=== PATIENT | female | born 1940 | race Caucasian/White ===

== ENCOUNTER → 2019-11-25 | Day surgery (SDC) | payer MEDICARE, BC ==
[2019-11-23 16:31] LABS: BASOPHILS # (AUTO) 0.1 (0.0-0.1); BASOPHILS % 0.6 % (0.0-1.0); EOSINOPHILS # (AUTO) 0.3 (0.0-0.4); EOSINOPHILS % 2.6 % (0.0-6.0); HEMATOCRIT 39.7 % (34.2-44.1); LYMPHOCYTES # (AUTO) 2.7 (1.0-3.2); LYMPHOCYTES % 21.4 % (18.0-39.1); MEAN CORPUSCULAR HEMOGLOBIN 30.2 pg (28-32); MEAN CORPUSCULAR HGB CONC 32.7 g/dL (31-35); MEAN CORPUSCULAR VOLUME 92.1 fL (81-99); MONOCYTES # (AUTO) 1.1 (0.2-0.8); MONOCYTES % 8.8 % (4.4-11.3); NEUTROPHILS # (AUTO) 8.3 (2.1-6.9); NEUTROPHILS % 66.3 % (38.7-80.0); PLATELET COUNT 269 x10e3/uL (140-360); RED BLOOD COUNT 4.31 x10e6/uL (3.6-5.1); RED CELL DISTRIBUTION WIDTH 13.2 % (11.7-14.4)
--- NOTE | 2019-11-23 16:49 | Diagnostic Imaging Report ---
EXAMINATION: CHEST 2 VIEWS INDICATION: Pre-operative COMPARISON: None FINDINGS: LINES/TUBES:None LUNGS:The lungs are well-inflated. No focal consolidation or pulmonary edema. PLEURA:No pleural effusion or pneumothorax. MEDIASTINUM:The cardiomediastinal silhouette appears normal in size and shape. BONES/SOFT TISSUES:No acute osseous injury. Metallic anchors at the right shoulder related to prior rotator cuff repair. ABDOMEN: Moderate hiatal hernia. No free air under the diaphragm. IMPRESSION: No focal pneumonia or pulmonary edema. Moderate hiatal hernia. Signed by: Srini Chaves MD on 11/23/2019 4:47 PM
[~2019-11-25] MED LIST: ACETAMINOPHEN 1000 MG/100 ML IV ONE; ALENDRONATE SOD70 MG PO; AMLODIPINE BESY10 MG PO; BUPIVACAINE HCL 0.5% INJ 30 ML VIAL INJ ONE; CEFAZOLIN SOD 1 GM/NS 50ML 100 ML IV ONE; CENTRUM ADULTS1 EACH PO; DEXAMETHASONE SOD PHOS INJ 4 MG/ML VIAL ONE; DICLOFENAC-MIS1 EAC2 PO; EPINEPHRINE HCL 1:1000 1ML 1 MG/ML AMP ONE; FENTANYL CITRATE/PF 100MCG/2 ML INJ ONE; FOSAMAX; GLYCOPYRROLATE INJ 0.2 MG/ML VIAL ONE; HYDROMORPHONE 2MG/ML 2 MG/ML ML ONE; LIDOCAINE HCL 2% LOCAL INJ 5 ML SDV VIAL INJ ONE; LOSARTAN-HCTZ1 EAC1 PO; METOCLOPRAMIDE HCL 10 MG/2ML VIAL ONE; MIDAZOLAM HCL 2 MG/2 ML VIAL ONE; NEOSTIGMINE 1 MG/ML 10ML VIAL ONE; ONDANSETRON HCL INJ 2MG/ML 2ML 2 MG/ML VIAL ONE; PROCARDIA; PROPOFOL IV EMULSION 10 MG/ML 20 ML VIAL ONE; ROCURONIUM BROMIDE 10 MG/ML 5ML VIAL ONE; SEVOFLURANE INHAL SOLN 250 ML PEN BTL ONE; [UNRECOGNIZED DRUG - OTHER]
--- OUTSIDE RECORDS SUMMARY | 2019-11-25 07:06 | XMS REPORT ---
Author [facility] Address Unknown Phone Unavailable Care Team Providers Care Fabric Machine Operator Name Role Phone YANCY CORDOBA Unavailable Unavailable Payers Payer Name Policy Type Policy Number Effective Date Expiration Date Problems This patient has no known problems. Allergies, Adverse Reactions, Alerts Allergy Name Allergy Type Status Severity Reaction(s) Onset Date Inactive Date Treating Clinician Comments No Known Contrast Allergies DA Active U 2008-12-02 00:00:00 No Known Drug Allergies DA Active U 2008-12-02 00:00:00 No Known Food Allergies DA Active U 2008-12-02 00:00:00 No Known Other Allergies DA Active U 2008-12-02 00:00:00 No Known Drug Intolerances DA Active U 2008-12-01 00:00:00 Medications This patient has no known medications. Results Test Description Test Time Test Comments Text Results Atomic Results Result Comments CHEST 2 VIEWS 2019-11-23 16:45:00 [facility] [address] [place] [address] Patient Name: PEARL HUGO MR #: [id number] : 1940 Age/Sex: 79/F Req #: [id number] Adm Physician: Ordered by: YANCY CORDOBA MD Report #: [id number] Location: OR Room/Bed: Procedure: [id number] DX/CHEST 2 VIEWS Exam Date: 11/23/19 Exam Time: 162 REPORT STATUS: Signed EXAMINATION: CHEST 2 VIEWS INDICATION: Pre-operative COMPARISON: None FINDINGS: LINES/TUBES:None LUNGS:The lungs are well-inflated. No focal consolidation or pulmonary edema. PLEURA:No pleural effusion or pneumothorax. MEDIASTINUM:The cardiomediastinal silhouette appears normal in size and shape. BONES/SOFT TISSUES:No acute osseous injury. Metallic anchors at the right shoulder related to prior rotator cuff repair. ABDOMEN: Moderate hiatal hernia. No free air under the diaphragm. IMPRESSION: No focal pneumonia or pulmonary edema. Moderate hiatal hernia. Signed by: Brianne Garcias MD on 11/23/2019 4:47 PM Dictated By: BRIANNE GARCIAS MD 46 Transcribed By: LITA on 11/23/191646 COPY TO: YANCY CORDOBA MD MRI SHOULDER LEFT WO 2019-11-17 13:51:00 [place] [address] Patient Name: PEARL HUGO MR #: [id number] : 1940 Age/Sex: 79/F Req #: [id number] Adm Physician: Ordered by: YANCY CORDOBA MD Report #: [id number] Location: MRI Room/Bed: Procedure: [id number] MRI/MRI SHOULDER LEFT WO Exam Date: Exam Time: REPORT STATUS: Signed MRI of the left shoulder without contrast. History: Shoulder pain. Rotator cuff tear. Decreased range of motion. Comparison: None Technique: Coronal PD FS, sagital PD FS, and axial PD and PD FS. Findings: Rotator cuff: Rotator cuff tendinosis with full-thickness tear involving the anterior fibers of the supraspinatus and infraspinatus tendons at the insertion site. This is best seen on sagittal image 6 and coronal image 9 through 12. Minimal retraction of the torn fibers and mild supraspinatus and infraspinatus muscle atrophy. Additionally, there is subscapularis tendinosis. The teres minor tendon is intact. Osseous acromion complex: Type II acromion with mild lateral downsloping. Moderate degenerative arthrosis at the acromioclavicular joint with undersurface spurring and narrowing of the supraspinatus tendon outlet. Mild subacromial/subdeltoid bursitis. Glenohumeral joint: Degeneration and fraying of the labrum. The articular cartilage surfaces are intact. The humeral head is well-seated in the glenoid fossa. Biceps tendon: Intra-articular biceps tendinosis with fraying at the biceps anchor. Other findings: Negative for muscle denervation or osseous fracture. Impression: Rotator cuff tendinosis with full-thickness tear involving the anterior fibers of the supraspinatus and infraspinatus tendons at the insertion site. Moderate degenerative arthrosis at the acromioclavic ular joint with undersurface spurring and narrowing of the supraspinatus tendon outlet. Mild subacromial/subdeltoid bursitis. Signed by: Dr. Miri Russell M.D. on 11/17/2019 1:56 PM Dictated By: MIRI RUSSELL MD, MD [id number] Transcribed By: LITA on 11/17/19 1352 COPY TO: YANCY CORDOBA MD LIPID PROFILE (CORONARY RISK) 2018-12-16 13:38:00 TRIGLYCERIDES (test code=TRIG) 150 mg/dL 20-150 CHOLESTEROL (test code=CHOL) 164 mg/dL 0-200 CHOLESTEROL/HDL RATIO (test code=CHOLHDL) 2.0 RATIO 0-4.9 RISK ASSOCIATED WITH CHOL/HDL RATIOS: Risk Male Female1/2 AVERAGE 3.43 3.27AVERAGE 4.97 4.442X AVERAGE 9.55 7.053X AVERAGE 23.39 11.04 REFERENCE VALUE IS RELATED TO RISK LEVELS ASRECOMMENDED BY THE [facility]. HEART, LUNG, AND BLOOD INST. HDL CHOLESTEROL (test code=HDL) 62 mg/dL 40-60 LIPOPROTEIN LDL (test code=LDL) 86 mg/dL 100-129 Reference Interval: mg/dL mmol/L Optimal <100 <2.6Near/above optimal 100-129 2.6- 3.3Borderline High 130-159 3.4-4.1High 160-189 4.1-4.9Very High >=190 >=4.9=========This LDL result is a direct measurement.========= COMPREHENSIVE METABOLIC [id number] 08:54:00* Test Item Value Reference Range Comments SODIUM (test code=NA) 141 mmol/L 135-148 POTASSIUM (test code=K) 4.6 mmol/L 3.5-5.1 CHLORIDE (test code=CL) 104 mmol/L 101-109 CARBON DIOXIDE (test code=CO2) 28.9 mmol/L 21-32 ANION GAP (test code=GAP) 13 mmol/L 10-20 GLUCOSE (test code=GLU) 100 mg/dL 74-106 BLOOD UREA NITROGEN (test code=BUN) 30 mg/dL 3-21 CREATININE (test code=CREAT) 1.07 mg/dL 0.55-1.3 BUN/CREATININE RATIO (test code=BUN/CREA) 28.0 10-20 TOTAL PROTEIN (test code=PROT) 7.9 g/dL 6.5-8.4 ALBUMIN (test code=ALB) 3.8 g/dL 3.4-4.8 GLOBULIN (test code=GLOB) 4.1 G/DL 1-10 ALBUMIN/GLOBULIN RATIO (test code=A/G) 0.9 RATIO 0.75-1.50 CALCIUM (test code=CA) 9.2 mg/dL 8.4-10.2 BILIRUBIN TOTAL (test code=BILT) 0.50 mg/dL 0.0-1.0 SGOT/AST (test code=AST) 18 U/L 6-32 SGPT/ALT (test code=ALT) 28 U/L 12-78 Note: Change in REFERENCE RANGE due to new reagent method. ALKALINE PHOSPHATASE TOTAL (test code=ALKP) 101 U/L 38-126 BREAST CYST ASPIRATION [id number] 08:01:16- BREAST CYST ASPIRATION LEFTULTRASOUND GUIDED ASPIRATION LEFT BREAST: 10/28/2018CLINICAL: Left Cyst Aspiration. Comparison is made to exams dated 10/15/2018 ultrasound and 10/15/2018 mammogram - [facility] An aspiration was performed for the palpable 4 mm cyst located in the left breast at 9 o'clock, 10 cm from the nipple. The skin was prepped in the usual manner. Local anesthetic was administered to the access site. A 23 gauge needle was percutaneously placed into the abnormality under ultrasound guidance. Once the needle was documented to be in the correct location, clear yellow fluid was aspirated. The aspirated fluid was discarded. IMPRESSION: ASPIRATIONAspiration of the 4 mm cyst in the left breast was successful. Resume annual screening mammography in one year. Neelam Aguilera M.D. dm/:10/28/2018 08:01:16 Entry: - 10/28/2018 09:50:4 4Imaging Technologist: Yolanda Paris , [facility]-letter sent: B IRADS 1-2 NormalBREAST ULTRASOUND [id number] 10:45:39 - DIAG MAMM LEFT VINEET CAD DIGITALUNILATERAL LEFT DIGITAL DIAGNOSTIC MAMMOGRAM 3D/2D WITH CAD: 10/15/2018CLINICAL: Abnormal Mammogram. Digital breast tomosynthesis was performed in addition to routine CC and MLO views. Current mammographic images were evaluated by either a Currently M-Vu or a [email or web address] CAD (computer aided detection system). Comparison is made to exams dated 10/02/2018 mammogram, 09/11/2016 mammogram, and 07/29/2014 [facility] - [facility]. Recent exam with the following findings: A 4 mm asymmetry only seen in t he left breast MLO view superiorly, posterior depth. Spot compression tomosynth esis and possible ultrasound are recommended at this time.The tissue of the left breast is heterogeneously dense. This may lower the sensitivity of mammography. There is a 4 mm mass in the left breast at 9 o'clock, posterior depth, 10 cm f rom the nipple. No other significant masses or calcifications are seen in the b reast. INCOMPLETE ASSESSMENT: ADDITIONAL IMAGING EVALUATION RECOMMENDEDThe 4 mm mass in the left breast at 9 o'clock, posterior depth, 10 cm from the nipple, is indeterminate. An ultrasound is recommended and will be performed later today for further evaluation. - BREAST ULTRASOUND LEFTULTRASOUND OF LEFT BREAST AND LEFT AXILLA: 10/15/2018Comparison is made to exams dated 10/02/2018 mammogram, 09/11/2016 mammogram, and 07/29/2014 mammogram - [facility]-. Panora l-time ultrasound of the left breast and axilla was performed. There is a 4 mm complicated cyst/hypoechoic mass in the left breast at 9 o'clock, posterior dept h, 10 cm from the nipple. The left axillary lymph nodes appear unremarkable. IM PRESSION: SUSPICIOUS OF MALIGNANCY - FOLLOW-UP RECOMMENDEDThere is a 4 mm compli cated cyst/hypoechoic mass in the left breast at 9 o'clock, posterior depth, 10 cm from the nipple. This is favored to correlate with the mammographic findings and is at a low suspicion for malignancy. A diagnostic aspiration is recommend ed with post-aspiration mammogram to document resolution. If this proves to be a solid mass and/or if the ultrasound finding does not correlate with the mammog raphic findings, then biopsy is recommended.Eufemia Rodriguez M.D. ar/: 10/15/2018 10:45:39 Entry: alexsandra - 10/17/2018 14:51:02Imaging Technologist: Tomy Quiles , [facility]-letter sent: BIRADS 0 Other Rec L sanjay Mammogram BI-RADS: 0 Indeterminate Ultrasound BI-RADS: 4a Suspicious abn ormality - low suspicion for malignancyDIAG MAMM LEFT VINEET CAD [id number] 10:45:39 - DIAG MAMM LEFT VINEET CAD DIGITALUNILATERAL LEFT DIGITAL DIAGNOSTIC MAMMOGRAM 3D/2D WITH CAD: 10/15/2018CLINICAL: Abnormal Mammogram. Digital breast tomosynthesis was performed in addition to routine CC and MLO views. Current mammographic images were evaluated by either a Currently M-Vu or a [employer] ImageChecker CAD (computer aided detection system). Comparison is made to exams dated 10/02/2018 mammogram, 09/11/2016 mammogram, and 07/29/2014 mammogram - [facility]-. Recent exam with the following findings: A 4 mm asymmetry only seen in the left breast MLO view superiorly, posterior depth. Spot compression tomosynthesis and possible ultrasound are recommended at this time.The tissue of the left breast is heterogeneously dense. This may lower the sensitivity of mammography. There is a 4 mm mass in the left breast at 9 o'clock, posterior depth, 10 cm from the nipple. No other significant masses or calcifications are seen in the breast. INCOMPLETE ASSESSMENT: ADDITIONAL IMAGING EVALUATION RECOMMENDEDThe 4 mm mass in the left breast at 9 o'clock, posterior depth, 10 cm from the nipple, is indeterminate. An ultrasound is recommended and will be performed later today for further evaluation. - BREAST ULTRASOUND LEFTULTRASOUND OF LEFT BREAST AND LEFT AXILLA: 10/15/2018Comparison is made to exams dated 10/02/2018 mammogram, 09/11/2016 mammogram, and 07/29/2014 mammogram - [facility]-. Real-time ultrasound of the left breast and axilla was performed. There is a 4 mm complicated cyst/hypoechoic mass in the left breast at 9 o'clock, posterior depth, 10 cm from the nipple. The left axillary lymph nodes appear unremarkable. IMPRESSION: SUSPICIOUS OF MALIGNANCY - FOLLOW-UP RECOMMENDEDThere is a 4 mm complicated cyst/hypoechoic mass in the left breast at 9 o'clock, posterior depth, 10 cm from the nipple. This is favored to correlate with the mammographic findings and is at a low suspicion for malignancy. A diagnostic aspiration is recommend ed with post-aspiration mammogram to document resolution. If this proves to be a solid mass and/or if the ultrasound finding does not correlate with the mammog raphic findings, then biopsy is recommended.Eufemia Rodriguez M.D. ar/: 10/15/2018 10:45:39 Entry: - 10/17/2018 14:51:02Imaging Technologist: Tomy Quiles , [facility]-letter sent: BIRADS 0 Other Rec L sanjay Mammogram BI-RADS: 0 Indeterminate Ultrasound BI-RADS: 4a Suspicious abn ormality - low suspicion for malignancySCR MAMM BILATERAL VINEET CAD DIGITAL 2018-10-02 12:57:40 - SCR MAMM BILATERAL VINEET CAD DIGITALBILATERAL DIGITAL SCREENING MAMMOGRAM 3D/2D WITH CAD: 10/02/2018CLINICAL: Asymptomatic. Digital breast tomosynthesis was performed in addition to routine CC and MLO views. Current mammographic images were evaluated by either a Currently M-Vu or a [employer] ImageChecker CAD (computer aided detection system). Comparison is made to exams dated 09/11/2016 mammogram, 07/29/2014 mammogram, 07/28/2013 mammogram, and [facility] The tissue of both breasts is heterogeneously dense. This may lower the sensitivity of mammography. A 4 mm asymmetry only seen in the left breast MLO view superiorly, posterior depth, approximately 10 cm from the nipple, best seen on slice #43. No suspicious mass, architectural distortion, malignant type calcification, or lymph node abnormality detected in the right breast. IMPRESSION: INCOMPLETE ASSESSMENT: ADDITIONAL IMAGING EVALUATION RECOMMENDEDA 4 mm asymmetry only seen in the left breast MLO view superiorly, posterior depth. Spot compression tomosynthesis and possible ultrasound are recommended at this time.Enzo Victor M.D. ss/:10/02/2018 12:57:40 Parquet Floor Layer: Rosetta Shore FW RT(M), [facility]-FWletter sent: Additional Imaging Mammogram BI-RADS: 0 Indeterminate
[2019-11-25 07:39] LABS: BASOPHILS # (AUTO) 0.1 (0.0-0.1); BASOPHILS % 0.7 % (0.0-1.0); EOSINOPHILS # (AUTO) 0.3 (0.0-0.4); EOSINOPHILS % 2.9 % (0.0-6.0); HEMATOCRIT 40.1 % (34.2-44.1); HEMOGLOBIN 13.1 g/dL (12.0-16.0); LYMPHOCYTES # (AUTO) 2.4 (1.0-3.2); LYMPHOCYTES % 23.9 % (18.0-39.1); MEAN CORPUSCULAR HGB CONC 32.7 g/dL (31-35); MEAN CORPUSCULAR VOLUME 91.8 fL (81-99); MONOCYTES # (AUTO) 0.8 (0.2-0.8); MONOCYTES % 7.5 % (4.4-11.3); NEUTROPHILS # (AUTO) 6.5 (2.1-6.9); NEUTROPHILS % 64.7 % (38.7-80.0); PLATELET COUNT 285 x10e3/uL (140-360); RED BLOOD COUNT 4.37 x10e6/uL (3.6-5.1); RED CELL DISTRIBUTION WIDTH 13.2 % (11.7-14.4)
[2019-11-25 08:07] LABS: ANION GAP 16.3 mmol/L (8-16); CALCIUM 9.2 mg/dL (8.4-10.2); CREATININE, SERUM 1.11 mg/dL (0.57-1.11); POTASSIUM 4.3 mmol/L (3.5-5.1)
[2019-11-25 12:35] VITALS: BP 114/62
--- NOTE | 2019-11-28 01:07 | Operative Report ---
DATE OF PROCEDURE: 11/25/2019 SURGEON: Avinash Jauregui MD PREOPERATIVE DIAGNOSES: 1. Left shoulder rotator cuff tear. 2. Left shoulder acromioclavicular joint arthrosis. POSTOPERATIVE DIAGNOSES: 1. Left shoulder rotator cuff tear. 2. Left shoulder acromioclavicular joint arthritis. 3. Left shoulder synovitis. 4. Left shoulder partial labral tear. 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 OPERATIONS AND PROCEDURES PERFORMED: The patient underwent left shoulder examination under anesthesia, left shoulder arthroscopy, left shoulder arthroscopic debridement of synovitis, left shoulder debridement of a partial labral tear, left shoulder arthroscopic chondroplasty of the humeral head, left shoulder arthroscopic rotator cuff reconstruction, left shoulder arthroscopic subacromial decompression and acromioplasty, and a left shoulder arthroscopic distal clavicle resection. MORTGAGE CLERK: DUANE Leal ANESTHESIA: General endotracheal intubation anesthesia as well as a regional block. IV FLUIDS: As per the anesthesia record. BRIEF DESCRIPTION OF THE PATIENT'S SURGICAL PROCEDURE: Ms. Block was taken to the operating room, placed in the supine position on the operating table. Following induction of general anesthesia as well as endotracheal intubation, the patient's left shoulder was examined under anesthesia. She was found to have full passive range of motion of shoulder joint. There was no evidence of instability. The patient's shoulder was prepped and draped in a standard surgical fashion. Standard posterior lateral and anterior ports were created without difficulty. The scope was placed in the shoulder joint atraumatically. Examination of the glenohumeral articulation demonstrated mild chondromalacia of the humeral head. The biceps tendon was found to be contained within the shoulder joint and in good condition. There were no loose bodies in the shoulder joint. There was diffuse synovitis. There was partial tearing of the anterior inferior labrum. There was a full-thickness rotator cuff tear. A shaver was placed in the shoulder joint and the synovitis was debrided. A chondroplasty of the humeral head was also performed at this time. The anterior inferior labrum was also debrided at this time. Attention was then turned to the rotator cuff injury. A shaver was used to debride the rotator cuff tendon. It was also used to debride the insertion site to a bleeding bony bed. The shoulder was inflated with sterile normal saline. The scope was placed in a subacromial space and significant bursal inflammation was accounted. A lateral portal was created with an outside in technique. A bursectomy was performed. The rotator cuff injury was easily identified. An anterior lateral portal was created and the rotator cuff tear was further debrided. A single triple-loaded suture anchor was inserted into the greater tuberosity and the suture arms from that anchor were then woven through the rotator cuff tissue. The rotator cuff tissue was then advanced and tied firmly over its normal insertion site. Thus repaired rotator cuff tear. The coracoacromial ligament was then resected. An aggressive acromioplasty was performed. The shoulder was placed through range of motion and no impingement was encountered. Attention was then turned to the AC joint. The anterior portal was transferred to the subacromial space. The acromioclavicular joint was isolated. A shaver was used to resect 1 cm section of the distal clavicle. The scope was then used to confirm complete resection of the distal clavicle. The shoulder was inflated with sterile normal saline. The portal sites were closed. Sterile dressings were applied and the patient was awakened and taken to the postanesthesia care unit in stable condition. Abril Farfan acted as clinical trials assistant for this case and was necessary for the prepping and draping the patient as well as positioning of the arm and passage of suture and the closure of the wound to allow this case to be successful. MD DIMITRY Malone/MARCIA /[id number]
== END | disposition home or self-care (01) ==
LOC: OR 06:57
PROVIDERS: ATTEND Specialist
DX: M75.122 Complete rotator cuff tear or rupture of left shoulder, not specified as traumatic (principal); M19.012 Primary osteoarthritis, left shoulder; M94.212 Chondromalacia, left shoulder; M65.812 Other synovitis and tenosynovitis, left shoulder; S43.432A Superior glenoid labrum lesion of left shoulder, initial encounter; M10.9 Gout, unspecified; I10 Essential (primary) hypertension; X58.XXXA Exposure to other specified factors, initial encounter; Z01.810 Encounter for preprocedural cardiovascular examination; Z01.812 Encounter for preprocedural laboratory examination; Z01.818 Encounter for other preprocedural examination; Z68.39 Body mass index [BMI] 39.0-39.9, adult
CPT/HCPCS: 29824; 29826; 29827; 36415 ×2; 71046; 80048; 85025 ×2; 93005; C1713; J0131; J0171; J0690; J1100; J1170; J2001; J2250; J2405; J2704; J2710; J2765; J3010

== ENCOUNTER → 2022-04-18 | Day surgery (SDC) | payer MEDICARE, BC ==
[2022-04-16 08:48] LABS: BASOPHILS # (AUTO) 0.1 (0.0-0.1); BASOPHILS % 0.5 % (0.0-1.0); EOSINOPHILS # (AUTO) 0.3 (0.0-0.4); EOSINOPHILS % 2.6 % (0.0-6.0); HEMATOCRIT 42.5 % (34.2-44.1); LYMPHOCYTES # (AUTO) 2.3 (1.0-3.2); LYMPHOCYTES % 17.6 % (18.0-39.1); MEAN CORPUSCULAR HEMOGLOBIN 30.8 pg (28-32); MEAN CORPUSCULAR HGB CONC 30.6 g/dL (31-35); MEAN CORPUSCULAR VOLUME 100.7 fL (81-99); MONOCYTES # (AUTO) 1.2 (0.2-0.8); NEUTROPHILS % 69.8 % (38.7-80.0); PLATELET COUNT 286 x10e3/uL (140-360); RED BLOOD COUNT 4.22 x10e6/uL (3.6-5.1); RED CELL DISTRIBUTION WIDTH 13.3 % (11.7-14.4)
[2022-04-16 09:26] LABS: CREATININE, SERUM 1.34 mg/dL (0.57-1.11)
[~2022-04-18] MED LIST changes: -ACETAMINOPHEN 1000 MG/100 ML IV ONE; +AVALIDE 300-121 EACH PO; +BUPIVACAINE HC 0.75% PF 10ML VIAL INJ ONE; -BUPIVACAINE HCL 0.5% INJ 30 ML VIAL INJ ONE; -CEFAZOLIN SOD 1 GM/NS 50ML 100 ML IV ONE; +DEXAMETHASONE SOD PHOS INJ 4 MG/ML SDV ONE; -DEXAMETHASONE SOD PHOS INJ 4 MG/ML VIAL ONE; -EPINEPHRINE HCL 1:1000 1ML 1 MG/ML AMP ONE; -GLYCOPYRROLATE INJ 0.2 MG/ML VIAL ONE; +HYDROMORPHONE 1MG/1ML INJ ONE; -HYDROMORPHONE 2MG/ML 2 MG/ML ML ONE; +IOPAMIDOL 610MG/1ML 300 MG/ML VIAL IV ONE; +KETOROLAC TROMETHAMINE 30 MG/ML VIAL ONE; +POVIDONE IODINE 0.05% 0.05 % ML PO ONE; -ROCURONIUM BROMIDE 10 MG/ML 5ML VIAL ONE
[2022-04-18 15:30] VITALS: BP 138/63
== END | disposition home or self-care (01) ==
LOC: OR 11:23
PROVIDERS: ATTEND Podiatrist Foot & Ankle Surgery
DX: S82.46 Segmental fracture of shaft of fibula (principal); E66.01 Morbid (severe) obesity due to excess calories; Z68.41 Body mass index [BMI] 40.0-44.9, adult; I10 Essential (primary) hypertension; Z01.810 Encounter for preprocedural cardiovascular examination; Z01.812 Encounter for preprocedural laboratory examination; Z01.818 Encounter for other preprocedural examination; Z20.822 Contact with and (suspected) exposure to COVID-19
CPT/HCPCS: 27792; 36415 ×2; 71046; 80048; 84132; 85025; 93005; C1713 ×7; J0690; J1100; J1170; J1885; J2001; J2250; J2405; J2704; J2710; J2765; J3010; Q9967; U0002; 0223U; 76000